=== PATIENT | male | born 1960 | race Two or more races ===

== ENCOUNTER → 2024-11-04 | Outpatient (CLI) | payer MEDICAID, SELFPAY ==
--- NOTE | 2024-11-04 13:00 | XR_ITS ---
Examination: CTA abdomen, with intravenous contrast. 2-D sagittal and coronal reconstructions. 3-D reconstructions. Date and time of exam: November 04, 2024 1344 hours INDICATIONS: Portal hypertension, elevated ammonia levels CTDI vol (mgy) 109 DLP (MGycm) 3413 Technique: Multiple CTA images, 2.0 mm slice thickness, obtained abdomen, with the high-resolution 64 slice scanner. 100 cc Isovue-370 is administered intravenously. Sagittal and coronal 2-D reconstructions are obtained. 3-D reconstructions, angiographic images are obtained. 3-D postprocessing, including vascular maximum intensity projections. Low dose protocols were performed. One or more of the following dose reduction techniques were used; automated exposure control, adjustment of the mA and/or KV according to patient size, use of iterative reconstruction technique. Findings: No enhancing liver lesions on the liver is mildly irregular in contour Contracted gallbladder Spleen is not enlarged No pancreatic or adrenal mass No hydronephrosis renal or ureteral calculi Aorta normal size No bowel obstruction Fat-containing right anterior abdominal wall hernia defect, measuring 22 mm, but fat-containing hernia sac measuring 4.9 cm IMPRESSION: No enhancing liver lesions Primary hepatocellular disease No abnormal contrast extravasation in the gastrointestinal tract
== END | disposition home or self-care (01) ==
PROVIDERS: PCP Family Medicine; Referring Provider Internal Medicine Gastroenterology; Visit Provider Internal Medicine Gastroenterology
DX: K76.9 Liver disease, unspecified (principal)
CPT/HCPCS: 74175; A4649; Q9967

== ENCOUNTER 2024-12-02 07:40 | Day surgery (SDC) | payer MEDICAID, SELFPAY ==
[2024-12-01 13:49] VITALS: BMI 41.1
[2024-12-02] VITALS (14 sets, daily range): BP systolic 125–165; BP diastolic 70–123; PULSE 71–85; RESP 9–19; TEMP 36.6–36.7; O2SAT 95–100; BMI 41.1
[2024-12-02] MEDS: MIDAZOLAM INJ 1 MG/ML VIAL 2 ML (ASD USE ONLY) 2 MG IV (09:50)
[2024-12-02] MEDS: fentaNYL CIT INJ 50 mCg/ML AMP 2ML (ASD USE ONLY) IV (09:50)
== END 2024-12-02 11:07 | disposition home or self-care (01) ==
PROVIDERS: PCP Family Medicine; Referring Provider Internal Medicine Gastroenterology; Visit Provider Internal Medicine Gastroenterology
PROC: 0DBE8ZX Excision of Large Intestine, Via Natural or Artificial Opening Endoscopic, Diagnostic (ICD-10-PCS; CPT 45380; principal; 2024-12-02 09:00)
PROC: (CPT 43239; 2024-12-02 09:00)
DX: D12.2 Benign neoplasm of ascending colon (principal); K76.6 Portal hypertension; K64.8 Other hemorrhoids; K57.31 Diverticulosis of large intestine without perforation or abscess with bleeding; K63.5 Polyp of colon
CPT/HCPCS: 45385; 45380; A4649; J2250; J3010